=== PATIENT | female | born 1945 | race Hispanic/Latino ===

== ENCOUNTER → 2020-12-23 | Outpatient (CLI) | payer MEDICARE ==
[~2020-12-23] MED LIST: AEC81 PO; BRIM5DRO2 OU; CETI10CA5 PO; DORZ10DR10 OU; ENAL1TAB11 PO; KRIL500C PO; LACT1CAP72 PO; MAGN27TA2 PO; MEDR10TA11 PO; METO-409 PO; MOME17N NASAL; VITA1CAP PO; XALA2.5OS OU; [UNRECOGNIZED DRUG - OTHER] PO
== END | disposition home or self-care (01) ==
LOC: SHCH 14:08
PROVIDERS: ATTEND Internal Medicine Cardiovascular Disease
DX: R55 Syncope and collapse (principal); R06.02 Shortness of breath; R07.9 Chest pain, unspecified; E66.9 Obesity, unspecified
CPT/HCPCS: 93306; 93356